=== PATIENT | male | born 1955 | race Caucasian/White ===

== ENCOUNTER 2022-05-18 16:49 | Emergency (ER) | payer OTHER ==
[2022-05-18 18:14] LABS: CORONAVIRUS COVID-19 NAA POSITIVE (NEGATIVE)
[2022-05-18] MEDS ORDERED: Ondansetron 4 MG Tab.DIS PO ONE (18:26)
== END 2022-05-18 19:05 | disposition home or self-care (01) ==
LOC: JP.ED 16:49
DX: A08.39 Other viral enteritis (principal); U07.1 COVID-19
CPT/HCPCS: 0241U; 81001; 99284

== ENCOUNTER 2024-10-29 07:07 | Day surgery (SDC) | payer MEDICARE, OTHER ==
[2024-10-29] MEDS ORDERED: Propofol 200 MG/20 ML SDV ONE ×3 (07:23→09:51)
[2024-10-29] MEDS ORDERED: Midazolam 1 MG/ML 2 ML SDV ONE (07:23)
[2024-10-29] MEDS ORDERED: fentaNYL 50 MCG/ML SDV ONE (07:23)
[2024-10-29] MEDS: Lactated Ringers 1,000 ML IV SCH (07:51)
== END 2024-10-29 11:05 | disposition home or self-care (01) ==
LOC: JP.SDS 07:07
PROVIDERS: ATTEND Family Medicine
DX: Z12.11 Encounter for screening for malignant neoplasm of colon (principal); Z86.0100 Personal history of colon polyps, unspecified; Z80.0 Family history of malignant neoplasm of digestive organs
CPT/HCPCS: 00811; 45380; 45385; 88305; J2250; J2704; J3010; J7120